=== PATIENT | male | born 1960 | race Caucasian/White ===

== ENCOUNTER 2020-12-07 23:47 | Emergency (ER) | payer OTHER ==
[2020-12-08] MEDS ORDERED: MEDROL 4MG DOSEP4 MG PO (01:14)
[2020-12-08] MEDS ORDERED: ATARAX25 MG PO (01:14)
== END 2020-12-08 01:45 | disposition home or self-care (01) ==
LOC: FER 23:47
DX: L50.0 Allergic urticaria (principal); E11.9 Type 2 diabetes mellitus without complications; Z88.0 Allergy status to penicillin; Z79.84 Long term (current) use of oral hypoglycemic drugs
CPT/HCPCS: J1200; J2930; J7030